=== PATIENT | male | born 1995 | race Two or more races ===

== ENCOUNTER 2024-05-09 08:00 | Outpatient (RCR) | payer MEDICAID, SELFPAY ==
--- NOTE | 2024-04-24 14:35 | PT.OIERPT ---
PT OP Initial Eval Patient Information Outpatient Physical Therapy Treatment Date: 04/24/24 Visit Reasons: Pain in RT hand/Low back pain Medical Diagnosis: Right Hand Pain Treatment Dx #1: Right Hand Pain Start of Care: 04/24/24 Date of Onset: Nov 2023 Smoking Status Smoking Status: Never smoker Initial Assessment Subjective: Pt is a 28 y/o male reports of right hand pain (6/10) after hyperextension injury where he was working out. Pt's xray negative but no MRI. Pt has limitation with gripping, lifting, chores, self care, working out, and work duties. 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 Pt will attempt physical therapy if pain persist Pt will be refer back to provider for further consultation. Short Term and Laboratory Immunologist Goals 1) Decrease hand pain to 2/10 in 6 wks to be able to resume gym activities 2) Increase right graduate research assistant strength to 115 lbs in 6 wks to be able to perform lifting activities 3) Increase right wrist MMTs grossly to 4/5 in 6 wks to be able to perform recreational activities 4) Indep with HEP Treatment Plan 1) Manual Therapy 2) Therapeutic Activities 3) Therapeutic Exercises 4) Modalities (ice, heat) Frequency and Duration: 2 x wk for 6 wks Certification Dates: 04/24/24 to 07/23/24 Procedure Charges OP PT Eval Mod Complex 30 minutes: Yes
--- NOTE | 2024-05-02 08:16 | PT.ODAYNRPT ---
PT Outpatient Daily Note OP Daily Note Outpatient Physical Therapy Treatment Date: 05/02/24 Visit Reasons: Pain in RT hand/Low back pain Subjective: Pt reports R hand continues to be painful and sore. Objective: Please see flow sheet for ther ex list. 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 Wrist extension aggravates pain. Plan: assess response to treatment. Length of Time (minutes) of Treatment: 30 Minutes Procedure Charges Therapeutic Exercise 30 minutes: Yes
--- NOTE | 2024-05-04 08:53 | PT.ODAYNRPT ---
PT Outpatient Daily Note OP Daily Note Outpatient Physical Therapy Treatment Date: 05/04/24 Visit Reasons: Pain in RT hand/Low back pain Subjective: Pt's right hand is okay. Pt denies of soreness after last session Objective: Please see flow chart for list of ther ex performed Assessment: progressing hand resistance exercises with minimal pain Plan: Continue with PT Length of Time (minutes) of Treatment: 30 Minutes Procedure Charges Therapeutic Exercise 30 minutes: Yes
--- NOTE | 2024-05-09 08:42 | PT.ODAYNRPT ---
PT Outpatient Daily Note OP Daily Note Outpatient Physical Therapy Treatment Date: 05/09/24 Visit Reasons: Pain in RT hand/Low back pain Subjective: Pt reports wrist is feeling a little better . Objective: Please see flow sheet for ther ex list. Assessment: Functional hand gripping and strengthening completed with minimal discomfort. Plan: Continue with POC. Length of Time (minutes) of Treatment: 30 Minutes Procedure Charges Therapeutic Exercise 30 minutes: Yes
== END 2024-05-12 23:59 | disposition home or self-care (01) ==
LOC: CPTX 08:00
PROVIDERS: PCP Physician Assistant; Referring Provider Physician Assistant; Visit Provider Physician Assistant
DX: M79.641 Pain in right hand (principal); R53.1 Weakness; S69.81XD Other specified injuries of right wrist, hand and finger(s), subsequent encounter; X58.XXXD Exposure to other specified factors, subsequent encounter
CPT/HCPCS: 97110; 97162

== ENCOUNTER 2024-06-01 08:30 | Outpatient (RCR) | payer MEDICAID, SELFPAY ==
--- NOTE | 2024-05-16 09:18 | PTNOTE_ITS ---
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 Objective: Please see flow chart for list of ther ex performed Assessment: minimal change in hand pain; progressing with hand resistance Plan: Continue with PT Length of Time (minutes) of Treatment: 30 Minutes Procedure Charges Therapeutic Exercise 30 minutes: Yes
--- NOTE | 2024-05-18 11:39 | PT.ODAYNRPT ---
PT Outpatient Daily Note OP Daily Note Outpatient Physical Therapy Treatment Date: 05/18/24 Visit Reasons: right hand and low back pain Subjective: Pt's hand feels a little better. Pt wants to test it during his work out routine next time at the gym. 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 Pt tolerate exercises well with minimal pain reported today Plan: Continue with PT Length of Time (minutes) of Treatment: 30 Minutes Procedure Charges Therapeutic Exercise 30 minutes: Yes
--- NOTE | 2024-05-23 12:48 | PT.ODAYNRPT ---
PT Outpatient Daily Note OP Daily Note Outpatient Physical Therapy Treatment Date: 05/23/24 Visit Reasons: right hand and low back pain Subjective: Pt's wrist still hurts with excessive hyperextension movement, however, he hasn't really tried using his wrist at the gym yet. Pt is unsure if he wants to continue or discontinue physical therapy at this point due to not testing the wrist with his work out routines. Objective: Please see flow chart for list of ther ex performed Assessment: patient encouraged to resume gym activities to see if pain persist prior to making proper recommendation. Pt gave verbal understanding and will start to use the wrist more at the gym. Pt will report results to therapist in a few day. Plan: Continue with PT Length of Time (minutes) of Treatment: 30 Minutes Procedure Charges Therapeutic Exercise 30 minutes: Yes
--- NOTE | 2024-05-25 10:22 | PT.ODAYNRPT ---
PT Outpatient Daily Note OP Daily Note Outpatient Physical Therapy Treatment Date: 05/25/24 Visit Reasons: right hand and low back pain Subjective: Pt's hand is better. No new concerns to report Objective: Please see flow chart for list of ther ex performed Assessment: tolerate exercises with minimal pain and progressing towards goals Plan: Continue with PT Length of Time (minutes) of Treatment: 30 Minutes Procedure Charges Therapeutic Exercise 30 minutes: Yes
--- NOTE | 2024-06-01 11:26 | PT.ODAYNRPT ---
PT Outpatient Daily Note OP Daily Note Outpatient Physical Therapy Treatment Date: 06/01/24 Visit Reasons: right hand and low back pain Subjective: Pt's hand is better, however, will like to resume physical therapy for a few more sessions Objective: Please see flow chart for list of ther ex performed Assessment: progressing with resistance and added 5# to wrist extension/flexion with good tolerance Plan: Continue with PT Length of Time (minutes) of Treatment: 30 Minutes Procedure Charges Therapeutic Exercise 30 minutes: Yes
== END 2024-06-09 23:59 | disposition home or self-care (01) ==
LOC: CPTX 08:30
PROVIDERS: PCP Physician Assistant; Referring Provider Physician Assistant; Visit Provider Physician Assistant
DX: M79.641 Pain in right hand (principal); R53.1 Weakness; S69.81XD Other specified injuries of right wrist, hand and finger(s), subsequent encounter; X58.XXXD Exposure to other specified factors, subsequent encounter
CPT/HCPCS: 97110

== ENCOUNTER 2024-06-13 08:26 | Outpatient (RCR) | payer MEDICAID, SELFPAY ==
--- NOTE | 2024-06-13 12:30 | PTNOTE_ITS ---
PT OP Progress/Discharge Note Date of Service: 06/13/24 Progress Note/DC Note Progress Note/Discharge Note: DC Note Patient Information Visit Reasons: Rt hand and low back pain Medical Diagnosis: Right Wrist Pain Treatment Dx #1: Right Wrist Pain Service Continue Service or Discharge: Discharge Discharge Date: 06/13/24 Status Subjective: Pt's wrist is better and stronger, however, still has pain with wrist hyperextension. Pt has been able to resume most ADLs and workout. Pt will like to return to provider for further consultation. 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 Pt will no longer benefit from physical therapy due to plateau towards goals. Recommend hand MRI to help determine nature of wrist pain. Pt was instructed on HEP last session and educated to continue exercises to maintain overall mobility. Pt performed all exercises safely, thank you for your referrals. Plan: D/C home with HEP and follow up with MD Recommend hand MRI Procedure Charges Therapeutic Exercise 30 minutes: Yes
== END 2024-07-10 23:59 | disposition home or self-care (01) ==
LOC: CPTX 08:26
PROVIDERS: PCP Physician Assistant; Referring Provider Physician Assistant; Visit Provider Physician Assistant
DX: M79.641 Pain in right hand (principal); R53.1 Weakness
CPT/HCPCS: 97110

== ENCOUNTER 2024-10-25 08:30 | Outpatient (RCR) | payer MEDICAID, SELFPAY ==
--- NOTE | 2024-10-16 09:11 | PT.OIERPT ---
PT OP Initial Eval Patient Information Outpatient Physical Therapy Treatment Date: 10/16/24 Visit Reasons: BACK PAIN Medical Diagnosis: M51.369 Treatment Dx #1: LBP with radiculopathy Start of Care: 10/16/24 Date of Onset: 2017 Smoking Status Smoking Status: Never smoker Initial Assessment Subjective: Pt is 29 yr old male with long Hx of LBP and radiculopathy into R LE. Pt reports numbness of R foot with running and prolonged sitting. He is exercising every day doing Crossfit. PMH: none reported Imaging: MRI from 2017 and 2023 L5-S1 6 mm left paracentral disc bulge displacing the left S1 nerve root, L4-L5 5 mm central left paracentral disc bulge displacing the left L5 nerve root?? and producing mild left L4 ganglionic compression? Pt goal: to get rid of the back pain and LE pain Objective: Trunk ArOM: ? B SB 50% of normal with pain ? Extension: 20% with pain around L4-5, L5-S1 ? Flexion: 10 from floor with LBP ? B rotation: 60% with pain ? TTP: moderate paraspinals L5-S1 ? Neuro: R SLR: positive Assessment: ? Pt presents with trunk flexion sensitivity and overlying myofascial pain ? and TTP around L5-S1 consistent with ? lower lumbar disc bulge(s) with radiculopathy. Pt requires skilled therapy in order to decrease ? pain and improve sitting/standing tolerance and has poor/fair rehab potential. Eval ?followed by HEP printout. Short Term and Halfway Goals 1. Ind with HEP ? 2. Improved sitting/standing tolerance to 30 minutes with <=4/10 LBP ? 3. Decreased lower paraspinal TTP from mod to min 4. Improved HH chore tolerance to at least 30 minutes with <=3/10 LBP and no ?increase in LE ssx Treatment Plan 1. Manual therapy ? 2. Therex ? 3. Modalities as indicated, moist heat, ice, estim, mechanical traction Frequency and Duration: 1-2x a week for 8 sessions. He has 1 visit approved and then he will need more authorized visits Certification Dates: 10/16/24 to 12/17/24 Procedure Charges OP PT Eval Mod Complex 30 minutes: Yes
--- NOTE | 2024-10-25 10:25 | PT.ODAYNRPT ---
PT Outpatient Daily Note OP Daily Note Outpatient Physical Therapy Treatment Date: 10/25/24 Visit Reasons: BACK PAIN Subjective: Same as time of evaluation Objective: See F/S for therex Assessment: Good demo of prone extension progression with low pain in L/S Plan: Continue per POC Length of Time (minutes) of Treatment: 30 Minutes Procedure Charges Therapeutic Exercise 30 minutes: Yes
== END 2024-11-09 23:59 | disposition home or self-care (01) ==
LOC: CPTX 08:30
PROVIDERS: PCP Physician Assistant Medical; Referring Provider Physician Assistant Medical; Visit Provider Physician Assistant Medical
DX: M51.16 Intervertebral disc disorders with radiculopathy, lumbar region (principal)
CPT/HCPCS: 97110; 97162

== ENCOUNTER → 2024-12-14 | Outpatient (CLI) | payer BC, SELFPAY ==
[2024-12-14 09:05] LABS: Collection Type, Urine Clean Catch; Squamous Epithelial Cell,Urine 0 /hpf (0-5)
[2024-12-14 09:55] LABS: Bilirubin,Urine Negative (Negative); Blood,Urine Negative (Negative); Clarity,Urine Clear (Clear/Hazy); Color,Urine Lt-Yellow (Lt Yel-Yel); Glucose, Urine Negative (Negative); Ketones,Urine Negative (Negative); Leukocyte Esterase,Urine Negative (Negative); Nitrite,Urine Negative (Negative); PH,Urine 5.5 (5.0-7.0); Protein,Urine Negative (Neg - Trace); RBC,Urine 1 /hpf (0-3); Specific Gravity,Urine 1.033 (1.001-1.035); Urobilinogen,Urine Negative mg/dL (0.0-1.0); WBC,Urine 1 /hpf (0-5)
[2024-12-14 09:56] LABS: Basophils # (Auto) 0.0 Thou/mm3 (0.0-0.2); Basophils % (Auto) 1 % (0-2.5); Eosinophils # (Auto) 0.1 Thou/mm3 (0.0-0.5); Eosinophils % (Auto) 2 % (0-10); Hematocrit 46.2 % (41.0-53.0); Hemoglobin 14.5 g/dL (13.5-16.0); Immature Granulocytes Auto 0.02 Thou/mm3 (0.00-0.00); Lymphocytes # (Auto) 2.0 Thou/mm3 (1.0-4.8); Lymphocytes % (Auto) 32 % (10-50); Mean Corpuscular HGB Conc 31.4 g/dl (31.0-37.0); Mean Corpuscular Hemoglobin 29.4 pg (25.0-35.0); Mean Corpuscular Volume 94 fL (80-100); Monocytes # (Auto) 0.5 Thou/mm3 (0.0-0.8); Monocytes % (Auto) 8 % (0-12); Neutrophils # (Auto) 3.7 Thou/mm3 (1.8-7.7); Neutrophils % (Auto) 58 % (37-80); Nucleated Red Blood Cell # 0.00 Thou/mm3 (0.00-0.00); Nucleated Red Blood Cell % 0 /100 WBC (0); Platelet Count 278 Thou/mm3 (140-440); RDW Standard Deviation 51.1 fL (35.1-43.9); Red Blood Count 4.93 Miln/mm3 (4.50-5.90); White Blood Count 6.3 Thou/mm3 (3.8-10.6)
[2024-12-14 10:02] LABS: Glucose Estimated Average 97 mg/dL (80-131); Hemoglobin A1C 5.0 % Hgb (4.8-6.0)
[2024-12-14 10:11] LABS: Alanine Aminotransferase 38 U/L (10-49); Albumin, Serum 4.4 gm/dL (3.5-5.0); Albumin/Globulin Ratio 1.8 (1.2-2.2); Alkaline Phosphatase 88 U/L (46-116); Anion Gap 12 (7-16); Aspartate Amino Transferase 23 U/L (0-34); BUN/Creatinine Ratio 22 Ratio (12-20); Bilirubin,Total 0.6 mg/dL (0.3-1.2); Blood Urea Nitrogen 22 mg/dL (9-23); Calcium 10.1 mg/dL (8.3-10.6); Calcium (Corrected) 10.1 mg/dL (8.5-10.1); Carbon Dioxide 28.1 mMol/L (20.0-31.0); Cardiac Risk Estimate 4.1 RATIO (4.0-6.7); Chloride 104 mMol/L (98-107); Cholesterol 178 mg/dL (132-200); Creatinine (Component) 1.0 mg/dL (0.6-1.3); Free T4 (Free Thyroxine) 1.25 ng/dL (0.89-1.76); Globulin 2.4 gm/dL (2.3-3.5); Glucose 86 mg/dL (74-106); HDL Cholesterol 43 mg/dL (40-60); LDL Cholesterol,Calculated 111 mg/dL (0-130); Osmolality,Calculated 289 (275-295); Potassium 3.9 mMol/L (3.4-5.1); Sodium 144 mMol/L (136-145); Thyroid Stimulating Hormone 3.28 uIU/mL (0.55-4.78); Total Protein 6.8 gm/dL (5.7-8.2); Triglycerides 121 mg/dL (30-150); eGFR > 60 See Note
[2024-12-14 10:11] LABS: Creatinine MALB Rnd Ur 206 mg/dL (30-125); Microalbumin, Random Urine < 3 mg/L (0-300)
[2024-12-14 10:12] LABS: Vitamin D 25 Hydroxy Total 69.6 ng/mL (7.3-40.2)
[2024-12-14 10:21] LABS: Syphilis Nonreactive (Nonreactive)
[2024-12-14 13:50] LABS: Chlamydia trachomatis PCR Negative (Not Detect); Neisseria Gonorrhoeae DNA PCR Negative (Not Detect); Trichomonas Negative (Negative)
[2024-12-25 06:24] LABS: HIV Ag/Ab, 4th Gen NON-REACTIVE; Testosterone, Free,Dialysis 171.4 pg/mL (35.0-155.0); Testosterone, Total, Dialysis 885 ng/dL (250-1100)
== END | disposition home or self-care (01) ==
PROVIDERS: PCP Family Medicine; Referring Provider Physician Assistant; Visit Provider Physician Assistant
DX: E55.9 Vitamin D deficiency, unspecified (principal); R53.83 Other fatigue; Z20.2 Contact with and (suspected) exposure to infections with a predominantly sexual mode of transmission; E66.3 Overweight; Z68.29 Body mass index [BMI] 29.0-29.9, adult
CPT/HCPCS: 36415; 80053; 80061; 81001; 82043; 82306; 82570; 83036; 84402; 84403; 84439; 84443; 85025; 86780; 87389; 87491; 87591; 87661